=== PATIENT | female | born 2000 | race African-American/Black ===

== ENCOUNTER 2018-07-21 10:36 | Emergency (ER) | payer SELFPAY ==
[~2018-07-21] VITALS: Ht 154.9 cm; Wt 81.6 kg
[2018-07-21 10:48] VITALS: BP 144/76
--- NOTE | 2018-07-21 11:30 | PHYS DOC ---
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 The patient states that she works for a [employer] and has had increased movement over the past few days with the holiday season. She states that her pain began 3 days ago with a mild ache but after the past 2 days of increased activity it has turned into a more severe pain. The patient is able to ambulate and bear weight on that extremity. Rest relieves her pain. Review of Systems Review of Systems Constitutional: Denies fever or chills [] Respiratory: Denies cough or shortness of breath [] Cardiovascular: No additional information not addressed in HPI [] Musculoskeletal: See history of present illness Integument: Denies rash or skin lesions [] Neurologic: Denies headache, focal weakness or sensory changes [] Endocrine: Denies polyuria or polydipsia [] All other systems were reviewed and found to be within normal limits, except as documented in this note. Allergies Allergies Allergies Coded Allergies Type Severity Reaction Last Updated Verified acetaminophen Allergy Intermediate 07/21/18 Yes Physical Exam Physical Exam Constitutional: Well developed, well nourished, no acute distress, non-toxic appearance. [] Cardiovascular:Heart rate regular rhythm, no murmur [] Lungs & Thorax: Bilateral breath sounds clear to auscultation [] Skin: Warm, dry, no erythema, no rash. [] Back: No tenderness, no CVA tenderness. [] Extremities: tenderness to base of right fifth metatarsal with no gross deformity noted, no cyanosis, no clubbing, ROM intact, no edema or ecchymosis. [ ] Neurologic: Alert and oriented X 3, normal motor function, normal sensory function, no focal deficits noted. [] Psychologic: Affect normal, judgement normal, mood normal. [] Current Patient Data Vital Signs Vital Signs Date Time Temp Pulse Resp B/P (MAP) Pulse Ox O2 Delivery O2 Flow Rate FiO2 07/21/18 10:48 98.3 97 16 144/76 (98) 96 Room Air 98.3 EKG EKG [] Radiology/Procedures Radiology/Procedures []PATIENT: ARTURO VEEACCOUNT: [id number]#: [id number] : 2000 LOCATION: ER AGE: 17 SEX: F EXAM STATUS: REG ER ORD. PHYSICIAN: JEANMARIE LAWLER APRN REASON: pain after overuse to base of 5th metatarsal PROCEDURE: FOOT RIGHT 3V 3 view right foot 07/21/2018 CLINICAL INDICATION: Lateral right foot pain for 2 days with no known injury. COMPARISON: None. FINDINGS: No acute fracture or traumatic malalignment. Joint spaces maintained. Incidental note is made of an os perineum. Normal bony alignment. IMPRESSION: No acute osseous abnormality. Electronically signed by: Enrique Gerard MD (07/21/2018 11:25 AM) [facility] DICTATED and SIGNED BY: ENRIQUE GERARD MD DATE: 07/21/181122 Course & Med Decision Making Course & Med Decision Making Pertinent Labs and Imaging studies reviewed. (See chart for details) []The patient was placed in a postop shoe for comfort. She is to follow-up with podiatry for symptoms do not resolve in 4 days. She is to take ibuprofen or Tylenol for pain. Dragon Disclaimer Dragon Disclaimer This electronic medical record was generated, in whole or in part, using a voice recognition dictation system. Departure Departure Impression: Primary Impression: Right foot strain Disposition: 01 HOME, SELF-CARE Condition: STABLE Referrals: NO PCP (PCP) [facility] [facility] Patient Instructions: Foot Sprain Additional Instructions: Take ibuprofen or Tylenol for pain. Wear the postop shoe for comfort. Follow-up with podiatry if not improving in 4 days or return to the emergency department if worsening. JEANMARIE LAWLER APRN Jul 21, 2018 11:30
== END 2018-07-21 11:57 | disposition home or self-care (01) ==
LOC: ER 10:36
DX: S96.811A Strain of other specified muscles and tendons at ankle and foot level, right foot, initial encounter (principal); Z88.6 Allergy status to analgesic agent; X58.XXXA Exposure to other specified factors, initial encounter; Y93.89 Activity, other specified; Y92.89 Other specified places as the place of occurrence of the external cause; Y99.0 Civilian activity done for income or pay
CPT/HCPCS: 73630; 99283

== ENCOUNTER 2019-10-17 16:29 | Emergency (ER) | payer SELFPAY ==
[~2019-10-17] VITALS: Ht 154.9 cm; Wt 81.8 kg
[~2019-10-17 16:29] MED LIST: CEPH-264 PO; METR500T PO
[2019-10-17 17:50] VITALS: BP 156/81
[2019-10-17] MEDS ORDERED: BENZ100C PO (18:06)
[2019-10-17] MEDS ORDERED: ALBU2.5V8 INH (18:06)
[2019-10-17] MEDS ORDERED: FLUT9.9S NS (18:06)
[2019-10-17] MEDS ORDERED: PRED50TA PO (18:06)
--- NOTE | 2019-10-17 18:06 | PHYS DOC ---
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 (RADHA ANDERSON APRN) Review of Systems Review of Systems Constitutional: Reports subjective fevers, body aches, chills Eyes: Denies change in visual acuity, redness, or eye pain [] HENT: Denies nasal congestion or sore throat [] Respiratory: Reports cough, denies shortness of breath [] Cardiovascular: No additional information not addressed in HPI [] GI: Denies abdominal pain, nausea, vomiting, bloody stools or diarrhea [] : Denies dysuria or hematuria [] Musculoskeletal: Denies back pain or joint pain [] Integument: Denies rash or skin lesions [] Neurologic: Denies headache, focal weakness or sensory changes [] All other systems were reviewed and found to be within normal limits, except as documented in this note. (RADHA ANDERSON APRN) Allergies Allergies Allergies Coded Allergies Type Severity Reaction Last Updated Verified acetaminophen Allergy Intermediate 07/21/18 Yes (SEAMUS ROBLES MD) Physical Exam Physical Exam Constitutional: Well developed, well nourished, no acute distress, non-toxic appearance. [] HENT: Normocephalic, atraumatic, bilateral external ears normal, oropharynx moist, no oral exudates, patient is congested nasally Eyes: PERRLA, EOMI, conjunctiva normal, no discharge. [] Neck: Normal range of motion, no tenderness, supple, no stridor. [] Cardiovascular:Heart rate regular rhythm, no murmur [] Lungs & Thorax: Bilateral breath sounds clear to auscultation [] Abdomen: Bowel sounds normal, soft, no tenderness, no masses, no pulsatile masses. [] Skin: Warm, dry, no erythema, no rash. [] Back: No tenderness, no CVA tenderness. [] Extremities: No tenderness, no cyanosis, no clubbing, ROM intact, no edema. [] Neurologic: Alert and oriented X 3, normal motor function, normal sensory function, no focal deficits noted. [] Psychologic: Affect normal, judgement normal, mood normal. [] (RADHA ANDERSON APRN) Current Patient Data Vital Signs Vital Signs Date Time Temp Pulse Resp B/P (MAP) Pulse Ox O2 Delivery O2 Flow Rate FiO2 10/17/19 17:50 98.6 106 16 156/81 (106) 100 Room Air 98.6 (SEAMUS ROBLES MD) EKG EKG [] (RADHA ANDERSON APRN) Radiology/Procedures Radiology/Procedures [] (RADHA ANDERSON APRN) Course & Med Decision Making Course & Med Decision Making Pertinent Labs and Imaging studies reviewed. (See chart for details) This is a well-appearing 19-year-old female patient presenting to the ED today with symptoms of viral illness including cough or DX chills and subjective fevers for 3 days. Patient is afebrile. Supportive care measures recommended. D ischarged to home. (RADHA ANDERSON APRN) Course & Med Decision Making I was not involved in the care of this patient. (SEAMUS ROBLES MD) Dragon Disclaimer Dragon Disclaimer This electronic medical record was generated, in whole or in part, using a voice recognition dictation system. (RADHA ANDERSON APRN) Departure Departure Impression: Primary Impression: Upper respiratory infection Additional Impressions: Cough Fever Disposition: 01 HOME, SELF-CARE Condition: STABLE Referrals: NO PCP (PCP) follow up with your doctor in 1-2 weeks Patient Instructions: Cough, Adult, [id number], Fever, Adult, Upper Respiratory Infection, Adult, [id number] Additional Instructions: You were evaluated in the emergency room with symptoms consistent of a viral illness. We recommend you rest, push fluids. Maintain good hand hygiene. Take Tylenol/Motrin for pain or fever. Take the prescription medicines as ordered. Follow-up with your doctor in 1-2 weeks Scripts Albuterol Sulfate (Proair Hfa) 8.5 Gm Hfa.aer.ad 1 PUFF INH PRN Q6HRS PRN for SHORTNESS OF BREATH, #1 INHALER Prov: RADHA ANDERSON APRN 10/17/19 Benzonatate (TESSALON PERLE) 100 Mg Capsule 1 CAP PO TID, #30 CAP Prov: PAUAndreRADHA CAITLYN 10/17/19 Fluticasone Propionate (Flonase Allergy Relief) 9.9 Ml [place].susp 2 SPRAYS NS DAILY, #1 BOTTLE Prov: MONICARADHA BRADY 10/17/19 Prednisone (PREDNISONE) 50 Mg Tablet 1 TAB PO DAILY, #5 TAB Prov: RADHA ANDERSON APRN 10/17/19 Problem Qualifiers Primary Impression: Upper respiratory infection URI type: unspecified URI Qualified Codes: J06.9 - Acute upper respiratory infection, unspecified Additional Impressions: Fever Fever type: unspecified Qualified Codes: R50.9 - Fever, unspecified RADHA ANDERSON APRN Oct 17, 2019 18:06 SEAMUS ROBLES MD Oct 17, 2019 18:14
== END 2019-10-17 18:16 | disposition home or self-care (01) ==
LOC: ER 16:29
DX: J06.9 Acute upper respiratory infection, unspecified (principal); R50.9 Fever, unspecified; R05 Cough; Z88.6 Allergy status to analgesic agent
CPT/HCPCS: 99283

== ENCOUNTER 2019-12-05 21:15 | Emergency (ER) | payer SELFPAY ==
[~2019-12-05] VITALS: Ht 154.9 cm; Wt 89.0 kg
[~2019-12-05 21:15] MED LIST changes: +ALBU2.5V8 INH; +BENZ100C PO; +FLUT9.9S NS; +PRED50TA PO
[2019-12-05 21:28] VITALS: BP 141/71
--- NOTE | 2019-12-05 21:37 | PHYS DOC ---
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 Patient denies any chance she is . Denies any concerns for STDs but would like to be tested. Review of Systems: Review of Systems: Constitutional: Denies fever or chills. [] Eyes: Denies change in visual acuity. [] HENT: Denies nasal congestion or sore throat. [] Respiratory: Denies cough or shortness of breath. [] Cardiovascular: Denies chest pain or edema. [] GI: Denies abdominal pain, nausea, vomiting, bloody stools or diarrhea. [] Female : Reports vaginal irritation : Denies dysuria. [] Musculoskeletal: Denies back pain or joint pain. [] Integument: Denies rash. [] Neurologic: Denies headache, focal weakness or sensory changes. [] Endocrine: Denies polyuria or polydipsia. [] Lymphatic: Denies swollen glands. [] Psychiatric: Denies depression or anxiety. [] Heart Score: Risk Factors: Risk Factors: DM, Current or recent (<one month) smoker, HTN, HLP, family history of CAD, obesity. Risk Scores: Score 0 - 3: 2.5% MACE over next 6 weeks - Discharge Home Score 4 - 6: 20.3% MACE over next 6 weeks - Admit for Clinical Observation Score 7 - 10: 72.7% MACE over next 6 weeks - Early Invasive Strategies Allergies: Allergies: Allergies Coded Allergies Type Severity Reaction Last Updated Verified acetaminophen Allergy Intermediate 07/21/18 Yes Physical Exam: PE: Constitutional: Well developed, well nourished, no acute distress, non-toxic appearance. [] HENT: Normocephalic, atraumatic, bilateral external ears normal, oropharynx moist, no oral exudates, nose normal. [] Eyes: PERRLA, EOMI, conjunctiva normal, no discharge. [] Neck: Normal range of motion, no tenderness, supple, no stridor. [] Cardiovascular:Heart rate regular rhythm, no murmur [] Lungs & Thorax: Bilateral breath sounds clear to auscultation [] Abdomen: Bowel sounds normal, soft, no tenderness, no masses, no pulsatile masses. [] Skin: Warm, dry, no erythema, no rash. [] Back: No tenderness, no CVA tenderness. [] Extremities: No tenderness, no cyanosis, no clubbing, ROM intact, no edema. [] Neurologic: Alert and oriented X 3, normal motor function, normal sensory function, no focal deficits noted. [] Psychologic: Affect normal, judgement normal, mood normal. [] Current Patient Data: Vital Signs: Vital Signs Date Time Temp Pulse Resp B/P (MAP) Pulse Ox O2 Delivery O2 Flow Rate FiO2 12/05/19 21:28 98.1 102 16 141/71 (94) 100 Room Air 98.1 EKG: EKG: [] Radiology/Procedures: Radiology/Procedures: [] Course & Med Decision Making: Course & Med Decision Making Pertinent Labs and Imaging studies reviewed. (See chart for details) This is a 19-year-old female patient presenting to the ED today complaining of vaginal irritation for 2 days. Denies any chance she is , last menstrual cycle was November 14, 2019. Patient met hospital MSE protocol. She left Dragon Disclaimer: Draghéctor Disclaimer: This electronic medical record was generated, in whole or in part, using a voice recognition dictation system. Departure Departure Impression: Primary Impression: Vaginal irritation Disposition: AGAINST MEDICAL ADVICE Condition: STABLE Referrals: NO PCP (PCP) RADHA ANDERSON APRN Dec 05, 2019 21:37
== END 2019-12-05 21:37 | disposition left against medical advice (07) ==
LOC: ER 21:15
DX: N89.8 Other specified noninflammatory disorders of vagina (principal); Z88.6 Allergy status to analgesic agent
CPT/HCPCS: 99281